=== PATIENT | female | born 1990 | race Two or more races ===

== ENCOUNTER 2022-12-11 12:12 | Emergency (ER) | payer OTHER ==
[~2022-12-11] VITALS: Ht 162.6 cm; Wt 74.8 kg
[2022-12-11 12:18] VITALS: BP 115/76
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
--- NOTE | 2022-12-11 13:08 | NUR ---
Patient discharged to home in stable condition. Written and verbal after care instructions given. Patient verbalizes understanding of instruction.
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
== END 2022-12-11 13:25 | disposition home or self-care (01) ==
LOC: ER 12:12
DX: S62.306A Unspecified fracture of fifth metacarpal bone, right hand, initial encounter for closed fracture (principal); W22.8XXA Striking against or struck by other objects, initial encounter; Y93.89 Activity, other specified; Y92.89 Other specified places as the place of occurrence of the external cause; Y99.8 Other external cause status
CPT/HCPCS: 73130-TC

== ENCOUNTER 2024-03-10 22:01 | Emergency (ER) | payer OTHER ==
[~2024-03-10] VITALS: Ht 162.6 cm; Wt 76.2 kg
[2024-03-10] MEDS ORDERED: AMOX-430 PO (23:31)
[2024-03-10] MEDS ORDERED: AMOX/CLAVULANATE 875 MG TABLET ONE (23:39)
[2024-03-10] MEDS ORDERED: TDAP [DIPH/PERTUSSIS/TET] 0.5 ML VIAL IM ONE (23:40)
[2024-03-10] MEDS: AMOX/CLAVULANATE 875 MG TABLET PO ONE (23:43)
[2024-03-10] MEDS: TDAP [DIPH/PERTUSSIS/TET] 0.5 ML VIAL IM ONE (23:44)
[2024-03-10 23:45] VITALS: BP 121/80; TEMP 98.2; O2SAT 98
== END 2024-03-10 23:45 | disposition home or self-care (01) ==
LOC: ER 22:08
DX: S60.571A Other superficial bite of hand of right hand, initial encounter (principal); W54.0XXA Bitten by dog, initial encounter; Y93.89 Activity, other specified; Y92.89 Other specified places as the place of occurrence of the external cause; Y99.8 Other external cause status
CPT/HCPCS: 90715

== ENCOUNTER 2024-06-15 19:47 | Emergency (ER) | payer OTHER ==
[~2024-06-15] VITALS: Ht 162.6 cm; Wt 74.4 kg
[~2024-06-15 19:47] MED LIST: AMOX-430 PO
[2024-06-15 20:52] VITALS: TEMP 98.1
[2024-06-15] MEDS ORDERED: LIDOCAINE 5% (PATCH) 1 EA PATCH TP ONE (21:28)
[2024-06-15] MEDS ORDERED: KETOROLAC TROMETHAMINE 15 MG/ML VIAL ONE (21:28)
[2024-06-15] MEDS ORDERED: ACETAMINOPHEN ES 500 MG TABLET ONE (21:28)
[2024-06-15] MEDS ORDERED: CYCLOBENZAPRINE 10 MG TABLET ONE (21:29)
[2024-06-15] MEDS: CYCLOBENZAPRINE 10 MG TABLET PO ONE (21:30)
[2024-06-15] MEDS: LIDOCAINE 5% (PATCH) 1 EA PATCH TP SCH (21:30)
[2024-06-15] MEDS: ACETAMINOPHEN ES 500 MG TABLET PO ONE (21:30)
[2024-06-15] MEDS: KETOROLAC TROMETHAMINE 15 MG/ML VIAL IM ONE (21:30)
[2024-06-15] MEDS ORDERED: CYCL10TA9 PO (22:07)
[2024-06-15] MEDS ORDERED: KETO10TA2 PO (22:07)
[2024-06-15 22:25] VITALS: BP 118/73; O2SAT 98
== END 2024-06-15 22:38 | disposition home or self-care (01) ==
LOC: ER 19:51
DX: S39.012A Strain of muscle, fascia and tendon of lower back, initial encounter (principal); M62.830 Muscle spasm of back; V43.62XA Car passenger injured in collision with other type car in traffic accident, initial encounter; Y93.89 Activity, other specified; Y92.488 Other paved roadways as the place of occurrence of the external cause; Y99.8 Other external cause status
CPT/HCPCS: 99284; 96372; J1885